=== PATIENT | female | born 1970 | race Caucasian/White ===

== ENCOUNTER 2017-10-19 21:05 | Inpatient (IN) | payer OTHER ==
[2017-10-19 21:26] VITALS: BMI 39.8
[2017-10-19] MEDS ORDERED: morphine CARPU-JECT 4 MG/1 ML DISP.SYRIN IVPUSH ONE (21:44)
[2017-10-19] MEDS ORDERED: SODIUM CHLORIDE 500 ML IV STA (21:44)
[2017-10-19] MEDS ORDERED: ONDANSETRON 4 MG/2 ML VIAL IVPUSH ONE (21:44)
[2017-10-19 22:14] LABS: URINE APPEARANCE CLOUDY; URINE BILIRUBIN NEGATIVE (NEGATIVE); URINE BLOOD 2+ (NEGATIVE); URINE COLOR AMBER; URINE GLUCOSE (UA) NEGATIVE (NEGATIVE); URINE KETONE NEGATIVE (NEGATIVE); URINE NITRITE NEGATIVE (NEGATIVE); URINE UROBILINOGEN 4.0 E.U/dl mg/dL (0.2-1.0)
[2017-10-19 22:15] LABS: URINE LEUK ESTERASE 3+ (NEGATIVE); URINE PROTEIN 2+ (NEGATIVE)
--- NOTE | 2017-10-19 22:15 | PDOC ---
History of Present Illness - General Chief Complaint: Pain Stated Complaint: FEVER, POST SURGERY Time Seen by Provider: 10/19/17 21:23 History Source: Patient, Family Exam Limitations: Language Barrier - History of Present Illness Travel History: No Initial Comments: 10/19/17 22:09 47yo Female patient w/ PmHx: Recurrent Renal Colic, NIDDM, HTN, HLD, presents to ED c/o urinary discomfort, fever, and back pain. Patient recently had Renal stent placed to left kidney on Oct 07 and Removed Oct 17. Patient was last seen at [facility] in [place] and diagnosed with "Urine infection." She was instructed to go to nearest ED if developed fever, vomiting with back pain. Patient is currently taking Keflex 500mg, Flomax 0.5mg, and Oxybutynin 5mg. She reports associated Dizziness, feeling of faint and dehydration, with n/v. She report BS not controlled since urine infection. She denies any other complaints at this time. Urologist- Dr. Lindsey ([place]). PCP- Dr. Méndez ([place]). Timing/Duration: reports: getting worse. denies: constant, changing over time, intermittent, resolved prior to arrival, gone now, other Quality: reports: moderate, cramping. denies: mild, severe, aching, burning, dullness, fullness, sharpness, stabbing, throbbing, other Abdominal Pain Onset Location: reports: flank (Left). denies: RUQ, LUQ, RLQ, LLQ, epigastric, periumbilical, suprapubic, generalized abdomen, unknown, other Pain Radiation: reports: no radiation. denies: RUQ, LUQ, RLQ, LLQ, epigastric, periumbilical, flank, groin, scapula, shoulder, chest, back, other Activities at Onset: reports: no specific activity. denies: none, exertion, emotional upset, rest, sleep, eating, working, sexual intercourse, other Treatment Prior to Arrive: improves with: other (Prescribed Medications). worse with: analgesics, antacids, cold pack, heat, laxative, enema Past History - Travel Traveled outside of the country in the last 30 days: No Close contact w/someone who was outside of country & ill: No - Past Medical History Allergies/Adverse Reactions: Allergies Allergy/AdvReac Type Severity Reaction Status Date / Time aspirin Allergy Severe Swelling Verified 10/19/17 21:17 Fruit Allergy Severe Swelling Uncoded 10/19/17 21:17 Home Medications: Ambulatory Orders Epinephrine (Epi-Pen 0.3MG) [Epipen 0.3MG -] 0.3 mg IM ASDIR PRN 10/19/17 Metformin HCl 500 mg PO BID 10/19/17 Montelukast Na [Singulair -] 10 mg PO DAILY 10/19/17 Nitrofurantoin Monohyd/M-Cryst [Macrobid -] 100 mg PO BID 10/19/17 Ondansetron HCl [Zofran] 4 mg PO Q8H 10/19/17 Simvastatin 80 mg PO HS 10/19/17 Tamsulosin HCl [Flomax] 0.4 mg PO DAILY 10/19/17 COPD: No Diabetes: Yes HTN: Yes Hypercholesterolemia: Yes Kidney Stones: Yes (w/ 2 surgeries) - Suicide/Smoking/Psychosocial Hx Smoking History: Former smoker Have you smoked in the past 12 months: No If you are a former smoker, when did you quit?: 25 yrs ago Information on smoking cessation initiated: No Hx Alcohol Use: No Drug/Substance Use Hx: No Substance Use Type: None Abd/GI Specific PMHX - Complaint Specific PMHX Colitis: No Diverticulitis: No Gall Bladder Disease: No GERD: No Hepatitis: No Irritable Bowel Synd (IBS): No Pancreatitis: No GI Ulcer Disease: No Review of Systems - Review of Systems Able to Perform ROS?: Yes Is the patient limited Telugu proficient: No Constitutional: Yes: Chills, Fever ABD/GI: Yes: Nausea, Poor Fluid Intake, Vomiting. No: Diarrhea, Poor Appetite : Yes: Dysuria, Flank Pain (Left) Musculoskeletal: Yes: Back Pain All Other Systems: Reviewed and Negative *Physical Exam - Vital Signs Last Vital Signs Temp Pulse Resp BP Pulse Ox 99.7 F H 108 H 20 99/52 99 10/19/17 21:17 10/19/17 21:17 10/19/17 21:17 10/19/17 21:17 10/19/17 21:17 - Physical Exam General Appearance: Yes: Nourished, Appropriately Dressed, Mild Distress. No: Apparent Distress, Moderate Distress, Severe Distress Respiratory/Chest: positive: Lungs Clear, Normal Breath Sounds. negative: Chest Tender, Respiratory Distress, Accessory Muscle Use, Labored Respiration, Rapid RR, Decreased Breath Sounds, Paradoxal Breathing, Rhonchi, Stridor, Wheezing Cardiovascular: positive: Tachycardia Gastrointestinal/Abdominal: positive: Normal Bowel Sounds, Soft. negative: Tender, Protuberent, Distended, Guarding, Rebound, Tenderness Musculoskeletal: positive: Normal Inspection, CVA Tenderness, CVA Tenderness (L) . negative: CVA Tenderness (R) Extremity: positive: Normal Capillary Refill, Normal Inspection, Normal Range of Motion. negative: Pedal Edema, Swelling, Calf Tenderness, Erythema, Inflammation Integumentary: positive: Normal Color, Dry, Warm Neurologic: positive: customer care manager II-XII NML intact, Fully Oriented, Alert, Normal Mood/ Affect, Normal Response, Motor Strength 03/07 ED Treatment Course - LABORATORY CBC & Chemistry Diagram: 10/19/17 22:13 10/19/17 22:13 *DC/Admit/Observation/Transfer Diagnosis at time of Disposition: Hyponatremia, Renal colic Hydronephrosis Qualifiers: Hydronephrosis type: with other ureteral stricture Qualified Code(s): N13.1 - Hydronephrosis with ureteral stricture, not elsewhere classified UTI (urinary tract infection) Qualifiers: Urinary tract infection type: site unspecified Hematuria presence: without hematuria Qualified Code(s): N39.0 - Urinary tract infection, site not specified - Discharge Dispostion Condition at time of disposition: Fair Admit: Yes - Referrals - Patient Instructions - Post Discharge Activity
[2017-10-19 22:17] LABS: URINE BACTERIA RARE /hpf (NONE SEEN); URINE HYALINE CAST 2 /lpf; URINE RBC 19 /hpf (0-3); URINE WBC 354 /hpf (3-5); YEAST RARE
[2017-10-19 22:20] LABS: BASO % 0.6 % (0-2.0); EOS % 0.5 % (0-4.5); MCH 25.9 pg (25.7-33.7); MCHC 32.6 g/dl (32.0-36.0); MEAN CELL VOLUME 79.5 fl (80-96); MEAN PLT VOLUME 7.8 fl (7.5-11.1); NEUT % 86.6 % (42.8-82.8); PLATELET COUNT 303 K/MM3 (134-434); RDW 14.7 % (11.6-15.6)
[2017-10-19] MEDS ORDERED: ACETAMINOPHEN 500 MG TABLET (FP) PO ONE (22:20)
[2017-10-19] MEDS ORDERED: ONDANSETRON 4 MG/2 ML VIAL ONE (22:20)
[2017-10-19] MEDS ORDERED: morphine SULFATE 4 MG/ML VIAL ONE (22:20)
[2017-10-19] MEDS ORDERED: ACETAMINOPHEN 325 MG TABLET (FP) ONE (22:41)
[2017-10-19 22:48] LABS: ALBUMIN 2.8 g/dl (3.4-5.0); ANION GAP 10 (8-16); BILIRUBIN,TOTAL 0.8 mg/dL (0.2-1.0); CALCIUM 8.3 mg/dL (8.5-10.1); CO2 24 mmol/L (21-32); CREATININE 1.9 mg/dL (0.55-1.02); GLUCOSE,RANDOM 174 mg/dL (74-106); SGOT/AST 42 U/L (15-37); SGPT/ALT 46 U/L (12-78); TOT PROT 7.6 g/dl (6.4-8.2)
[2017-10-19 22:49] LABS: ALK PHOS 184 U/L (45-117)
[2017-10-20] MEDS ORDERED: SODIUM CHLORIDE 1,000 ML IV STA (00:13)
[2017-10-20] MEDS ORDERED: cefTRIAXone 2 GM/100 ML BAG (PRE-DOCKED) IVPB ONE (02:03)
[2017-10-20] MEDS ORDERED: CEFTRIAXONE 2 GM/100 ML BAG IVPB ONE (02:13)
[2017-10-20] MEDS ORDERED: morphine SULFATE 4 MG/ML VIAL IVPUSH PRN ×2 (03:27→11:03)
[2017-10-20] MEDS ORDERED: ONDANSETRON 4 MG/2 ML VIAL IVPUSH PRN ×2 (03:27→11:03)
[2017-10-20] MEDS ORDERED: SODIUM CHLORIDE 1,000 ML IV SCH (03:45)
--- NOTE | 2017-10-20 04:36 | HP ---
<Skip Valladares - Last Filed: 10/20/17 04:40> CHIEF COMPLAINT: back pain PCP: n/a HISTORY OF PRESENT ILLNESS: Patient is a 47 yo F with a PMHx of recurrent nephrolithiasis (s/p left stent 10/07/17), HTN, diabetes, HLD, presented today because of 10/12 constant, nonradiating left back pain and subjective fever of 102 that has been going on for the past few days. She says she went to the ED 3 times since her stent removal with no relief of her kidney stones. She underwent Lithiotripsy in August and had the stent placed on 10/07 (removed ). She was discharged and is currently on Keflex 500mg, Flomax, and Oxybutinin. She states she has nausea and poor oral intake for the past week but denies nausea. She also complains of dysuria, burning while urinating and suprapubic pain. ER course was notable for: (1) 108 HR, 99/52, WBC 17 (2) CT abdomen: 2-3 mm stone distal left ureter mear UVJ causing moderate hydroureteronephrosis, 8mm stone left lower pole. 7 mm focus of left perihilar fat versus incidental angiomyolipoma mid left kidney. (3) Ceftriaxone 2gm Recent Travel: n/a PAST MEDICAL HISTORY: recurrent nephrolithiasis (s/p left stent 10/07/17), HTN, diabetes, HLD PAST SURGICAL HISTORY: stent placed on 10/07 (removed 10/17) Social History: Smoking: former smoker 25 years ago Alcohol: n/a Drugs: denies Family History: Allergies aspirin Allergy (Severe, Verified 10/19/17 21:17) Swelling Fruit Allergy (Severe, Uncoded 10/19/17 21:17) Swelling HOME MEDICATIONS: Home Medications Medication Instructions Recorded Epinephrine (Epi-Pen 0.3MG) 0.3 mg IM ASDIR PRN 10/19/17 [Epipen 0.3MG -] Metformin HCl 500 mg PO BID 10/19/17 Montelukast Na [Singulair -] 10 mg PO DAILY 10/19/17 Nitrofurantoin Monohyd/M-Cryst 100 mg PO BID 10/19/17 [Macrobid -] Ondansetron HCl [Zofran] 4 mg PO Q8H 10/19/17 Simvastatin 80 mg PO HS 10/19/17 Tamsulosin HCl [Flomax] 0.4 mg PO DAILY 10/19/17 REVIEW OF SYSTEMS CONSTITUTIONAL: Absent: fever, chills, diaphoresis, generalized weakness, malaise, loss of appetite, weight change HEENT: Absent: rhinorrhea, nasal congestion, throat pain, throat swelling, difficulty swallowing, mouth swelling, ear pain, eye pain, visual changes CARDIOVASCULAR: Absent: chest pain, syncope, palpitations, irregular heart rate, lightheadedness , peripheral edema RESPIRATORY: Absent: cough, shortness of breath, dyspnea with exertion, orthopnea, wheezing, stridor, hemoptysis GASTROINTESTINAL: Absent: abdominal pain, abdominal distension, nausea, vomiting, diarrhea, constipation, melena, hematochezia GENITOURINARY: Absent: dysuria, frequency, urgency, hesitancy, hematuria, flank pain, genital pain MUSCULOSKELETAL: Absent: myalgia, arthralgia, joint swelling, back pain, neck pain SKIN: Absent: rash, itching, pallor HEMATOLOGIC/IMMUNOLOGIC: Absent: easy bleeding, easy bruising, lymphadenopathy, frequent infections ENDOCRINE: Absent: unexplained weight gain, unexplained weight loss, heat intolerance, cold intolerance NEUROLOGIC: Absent: headache, focal weakness or paresthesias, dizziness, unsteady gait, seizure, mental status changes, bladder or bowel incontinence PSYCHIATRIC: Absent: anxiety, depression, suicidal or homicidal ideation, hallucinations. PHYSICAL EXAMINATION Vital Signs - 24 hr 10/19/17 21:17 Temperature 99.7 F H Pulse Rate 108 H Respiratory 20 Rate Blood Pressure 99/52 O2 Sat by Pulse 99 Oximetry (%) GENERAL: Awake, alert, and fully oriented, in no acute distress. HEAD: Normal with no signs of trauma. EYES: extraocular movements intact, sclera anicteric, conjunctiva clear. EARS, NOSE, THROAT: oropharynx clear without exudates. Moist mucous membranes. NECK: Normal range of motion, supple without lymphadenopathy, JVD, or masses. LUNGS: Breath sounds equal, clear to auscultation bilaterally. No wheezes, and no crackles. No accessory muscle use. HEART: tachy, rhythm, normal S1 and S2 without murmur, rub or gallop. ABDOMEN: L CVA tenderness, suprapubic tenderness. Soft, not distended, normoactive bowel sounds, no guarding, no rebound, no masses. MUSCULOSKELETAL: Normal range of motion at all joints. No bony deformities or tenderness. No CVA tenderness. UPPER EXTREMITIES: 2+ pulses, warm, well-perfused. No cyanosis. No clubbing. No peripheral edema. LOWER EXTREMITIES: 2+ pulses, warm, well-perfused. No calf tenderness. No peripheral edema. NEUROLOGICAL: Cranial nerves II-XII intact. Normal speech. Normal gait. PSYCHIATRIC: Cooperative. Good eye contact. Appropriate mood and affect. Laboratory Results - last 24 hr 10/19/17 10/19/17 10/19/17 22:05 22:13 22:13 WBC 17.0 H RBC 3.91 Hgb 10.1 L Hct 31.0 L MCV 79.5 L MCH 25.9 MCHC 32.6 RDW 14.7 Plt Count 303 MPV 7.8 Neutrophils % 86.6 H Lymphocytes % 5.9 L Monocytes % 6.4 Eosinophils % 0.5 Basophils % 0.6 Sodium 129 L Potassium 3.8 Chloride 95 L Carbon Dioxide 24 Anion Gap 10 BUN 17 Creatinine 1.9 H Creat Clearance w eGFR 28.10 Random Glucose 174 H Lactic Acid Calcium 8.3 L Total Bilirubin 0.8 AST 42 H ALT 46 Alkaline Phosphatase 184 H Total Protein 7.6 Albumin 2.8 L Urine Color Daisha Urine Appearance Cloudy Urine pH 5.0 Ur Specific [place] 1.015 Urine Protein 2+ H Urine Glucose (UA) Negative Urine Ketones Negative Urine Blood 2+ H Urine Nitrite Negative Urine Bilirubin Negative Urine Urobilinogen 4.0 e.u/dl H Urine WBC (Auto) 354 Urine RBC (Auto) 19 Ur Epithelial Cells Few Urine Bacteria Rare Hyaline Casts 2 Urine Yeast Rare 10/19/17 22:15 WBC RBC Hgb Hct MCV MCH MCHC RDW Plt Count MPV Neutrophils % Lymphocytes % Monocytes % Eosinophils % Basophils % Sodium Potassium Chloride Carbon Dioxide Anion Gap BUN Creatinine Creat Clearance w eGFR Random Glucose Lactic Acid 2.0 Calcium Total Bilirubin AST ALT Alkaline Phosphatase Total Protein Albumin Urine Color Urine Appearance Urine pH Ur Specific [place] Urine Protein Urine Glucose (UA) Urine Ketones Urine Blood Urine Nitrite Urine Bilirubin Urine Urobilinogen Urine WBC (Auto) Urine RBC (Auto) Ur Epithelial Cells Urine Bacteria Hyaline Casts Urine Yeast ASSESSMENT/PLAN: Patient is a 47 yo F with a PMHx of recurrent nephrolithiasis, HTN, diabetes, HLD, presented because of left back pain, fever, and suprapubic tenderness and was found to have urosepsis with obstructing nephrolithiasis. #Urosepsis 2/2 Obstructing Nephrolithiasis - CT abdomen: 2-3 mm stone distal left ureter mear UVJ causing moderate hydroureteronephrosis, 8mm stone left lower pole. 7 mm focus of left perihilar fat versus incidental angiomyolipoma mid left kidney. - Cont. IV Abx: Ceftriaxone 1gm -Ucx, Bcx pending -Urine strain -FU CBC, CMP, Mag, Phos -FU Urine Osm, Serum Osm, Urine lytes -Morphine 4mg Q6H PRN for pain control -Zofran 4mg Q6H for nausea -Flomax 0.4 mg Daily -Oxybutynin 5mg BID -IV fluids NS 125cc/hour -Urology consulted () -ID consulted (Dr. Trujillo) #Diabetes -BGM -ISS #Hyponatremia -FU Urine Osm, Serum Osm, Urine lytes -FU morning CMP #HTN/HLD -Hold home meds. currently hypotensive -confirm home meds #FEN -IV Fluids- NS 125cc/hour -Sodium 129 -NPO #PPX -Heparin SQ TID Dispo: Med-surge <Aurea Lafleur - Last Filed: 10/20/17 05:56> Patient is seen and examined Agree with residents plan above CHIEF COMPLAINT: Abdominal pain , flank pain HISTORY OF PRESENT ILLNESS: 47 year old female with history of recurrent nephrolithiasis that presents today c/o worsening left flank pain 8/10 in intensity , constant , associated with fever. She has had recent left ureteral stent removal and is treated with PO antibiotics with no improvement of her symptoms PAST MEDICAL HISTORY: Nephrolithiasis DM HTN PAST SURGICAL HISTORY: Cystoscopy Allergies aspirin Allergy (Severe, Verified 10/19/17 21:17) Swelling Fruit Allergy (Severe, Uncoded 10/19/17 21:17) Swelling HOME MEDICATIONS: Home Medications Medication Instructions Recorded Epinephrine (Epi-Pen 0.3MG) 0.3 mg IM ASDIR PRN 10/19/17 [Epipen 0.3MG -] Metformin HCl 500 mg PO BID 10/19/17 Montelukast Na [Singulair -] 10 mg PO DAILY 10/19/17 Nitrofurantoin Monohyd/M-Cryst 100 mg PO BID 10/19/17 [Macrobid -] Ondansetron HCl [Zofran] 4 mg PO Q8H 10/19/17 Simvastatin 80 mg PO HS 10/19/17 Tamsulosin HCl [Flomax] 0.4 mg PO DAILY 10/19/17 Vital Signs Temperature 99.7 F H 10/19/17 21:17 Pulse Rate 108 H 10/19/17 21:17 Respiratory Rate 20 10/19/17 21:17 Blood Pressure 99/52 10/19/17 21:17 O2 Sat by Pulse Oximetry (%) 99 10/19/17 21:17 LUNGS: Breath sounds equal, clear to auscultation bilaterally. No wheezes, and no crackles. No accessory muscle use. HEART: tachy, rhythm, normal S1 and S2 without murmur, rub or gallop. ABDOMEN: L CVA tenderness, suprapubic tenderness. CBC, BMP 10/19/17 22:13 10/19/17 22:13 Urine Test Results Urine Color Daisha 10/19/17 22:05 Urine Appearance Cloudy 10/19/17 22:05 Urine pH 5.0 (5.0-8.0) 10/19/17 22:05 Ur Specific [place] 1.015 (1.001-1.035) 10/19/17 22:05 Urine Protein 2+ (NEGATIVE) H 10/19/17 22:05 Urine Glucose (UA) Negative (NEGATIVE) 10/19/17 22:05 Urine Ketones Negative (NEGATIVE) 10/19/17 22:05 Urine Blood 2+ (NEGATIVE) H 10/19/17 22:05 Urine Nitrite Negative (NEGATIVE) 10/19/17 22:05 Urine Bilirubin Negative (NEGATIVE) 10/19/17 22:05 Ur Epithelial Cells Few /HPF (FEW) 10/19/17 22:05 Urine Bacteria Rare /hpf (NONE SEEN) 10/19/17 22:05 CT abdomen: 2-3 mm stone distal left ureter mear UVJ causing moderate hydroureteronephrosis, 8mm stone left lower pole. 7 mm focus of left perihilar fat versus incidental angiomyolipoma mid left kidney. 1. Acute Pyelonephritis secondary to UTI / obstructive nephropathy 2. Failure of treatment with outpatient antibiotics 3. Acute renal failure 4. Hyponatremia 5 DM Plan IVAB ID and Urology eval Pain control with IV morphine IVF Monitor CR UA cultures Obtain records Insulin SS Visit type - Emergency Visit Emergency Visit: Yes ED Registration Date: 10/20/17 Care time: The patient presented to the Emergency Department on the above date and was hospitalized for further evaluation of their emergent condition. - New Patient This patient is new to me today: Yes Date on this admission: 10/20/17 - Critical Care Critical Care patient: No
[2017-10-20] MEDS ORDERED: HEPARIN NA (PORCINE) 5,000 UNITS/ML 1ML VIAL SQ SCH (06:00)
[2017-10-20] MEDS ORDERED: HEPARIN NA (PORCINE) 5,000 UNITS/ML 1ML VIAL ONE (06:22)
[2017-10-20 06:25] LABS: BASO % 0.4 % (0-2.0); MCH 26.1 pg (25.7-33.7); MCHC 32.5 g/dl (32.0-36.0); MEAN CELL VOLUME 80.4 fl (80-96); NEUT % 81.1 % (42.8-82.8); PLATELET COUNT 283 K/MM3 (134-434); RDW 14.8 % (11.6-15.6); WHITE BLOOD COUNT 14.5 K/mm3 (4.0-10.0)
[2017-10-20 07:05] LABS: ALBUMIN 2.4 g/dl (3.4-5.0); ALK PHOS 150 U/L (45-117); ANION GAP 10 (8-16); BILIRUBIN,TOTAL 0.4 mg/dL (0.2-1.0); CALCIUM 8.4 mg/dL (8.5-10.1); CO2 25 mmol/L (21-32); CREATININE 1.6 mg/dL (0.55-1.02); GLUCOSE,RANDOM 146 mg/dL (74-106); MAGNESIUM 1.9 mg/dL (1.8-2.4); PHOSPHOROUS 2.7 mg/dL (2.5-4.9); SGOT/AST 34 U/L (15-37); SGPT/ALT 39 U/L (12-78); TOT PROT 6.7 g/dl (6.4-8.2)
[2017-10-20] MEDS: INSULIN SLIDING SCALE (NOVOLOG) 1 VIAL SQ SCH ×4 (08:23→21:18)
--- NOTE | 2017-10-20 08:24 | MSN ---
Progress Note (short form) - Note Progress Note: Subjective: William Dotson is a 47 year old Georgian-speaking female with past medical history of DM, HTN, HLD, recurrent kidney stones who presented to the ED with fever and left flank pain. Patient was admitted for sepsis secondary to UTI with nephrolithiasis. Patient states that she was originally diagnosed with left kidney stone in June 2017. In August she had a lithotripsy. On Oct 07 she had a stent placed in her left ureter, which was removed on Oct 17. Patient states that the severity of her left flank pain is 5/10. She also reports suprapubic pain with a severity of 7/10. Patient states that the suprapubic pain feels like a full bladder. She states she voided a lot of urine around 7am. She reports some dysuria. She states she had hematuria while at home but currently denies hematuria. Patient states that since the stent removal she has not had a bowel movement. Patient currently denies dizziness, urinary hesitancy, urinary incontinence, chest pain, SOB, palpitations. Objective: Last Vital Signs Temp Pulse Resp BP Pulse Ox 98.9 F 90 18 94/51 98 10/20/17 06:08 10/20/17 06:08 10/20/17 06:08 10/20/17 06:08 10/20/17 06:08 Physical Exam: General: well-appearing, calm Head: atraumatic, normocephalic Eyes: PERRLA, EMOI, no scleral icterus, no conjunctival injection Nose: no edema, no septal deviation, no erythema Throat: MM pale, no lesions or exudates in the oropharynx Heart: RRR without MRG Lungs: CTA biaterally without RRW Abdomen: Soft, non-distended, bowel sounds present and normoactive, tenderness to palpation in the suprapubic region, left CVA tenderness MSK: Extremities: no pitting edema in bilateral lower extremities, 5/5 strength in upper and lower extremities bilaterally, sensation intact in bilateral upper and lower extremities, pulses are palpable and 2+ bilaterally in upper and lower extremities Neuro: A&Ox3, CN II-XII grossly intact, speech normal Laboratory Results - last 24 hr 10/19/17 10/19/17 10/19/17 22:05 22:13 22:13 WBC 17.0 H RBC 3.91 Hgb 10.1 L Hct 31.0 L MCV 79.5 L MCH 25.9 MCHC 32.6 RDW 14.7 Plt Count 303 MPV 7.8 Neutrophils % 86.6 H Lymphocytes % 5.9 L Monocytes % 6.4 Eosinophils % 0.5 Basophils % 0.6 Sodium 129 L Potassium 3.8 Chloride 95 L Carbon Dioxide 24 Anion Gap 10 BUN 17 Creatinine 1.9 H Creat Clearance w eGFR 28.10 Random Glucose 174 H Lactic Acid Calcium 8.3 L Phosphorus Magnesium Total Bilirubin 0.8 AST 42 H ALT 46 Alkaline Phosphatase 184 H Total Protein 7.6 Albumin 2.8 L Urine Color Daisha Urine Appearance Cloudy Urine pH 5.0 Ur Specific [place] 1.015 Urine Protein 2+ H Urine Glucose (UA) Negative Urine Ketones Negative Urine Blood 2+ H Urine Nitrite Negative Urine Bilirubin Negative Urine Urobilinogen 4.0 e.u/dl H Urine WBC (Auto) 354 Urine RBC (Auto) 19 Ur Epithelial Cells Few Urine Bacteria Rare Hyaline Casts 2 Urine Yeast Rare 10/19/17 10/20/17 10/20/17 22:15 05:44 05:44 WBC 14.5 H RBC 3.50 L Hgb 9.2 L Hct 28.1 L MCV 80.4 MCH 26.1 MCHC 32.5 RDW 14.8 Plt Count 283 MPV 8.0 Neutrophils % 81.1 Lymphocytes % 8.5 D Monocytes % 8.0 Eosinophils % 2.0 D Basophils % 0.4 Sodium 136 Potassium 4.5 Chloride 101 Carbon Dioxide 25 Anion Gap 10 BUN 16 Creatinine 1.6 H Creat Clearance w eGFR 34.26 Random Glucose 146 H Lactic Acid 2.0 Calcium 8.4 L Phosphorus 2.7 Magnesium 1.9 Total Bilirubin 0.4 D AST 34 ALT 39 Alkaline Phosphatase 150 H Total Protein 6.7 Albumin 2.4 L Urine Color Urine Appearance Urine pH Ur Specific [place] Urine Protein Urine Glucose (UA) Urine Ketones Urine Blood Urine Nitrite Urine Bilirubin Urine Urobilinogen Urine WBC (Auto) Urine RBC (Auto) Ur Epithelial Cells Urine Bacteria Hyaline Casts Urine Yeast Current Medications Generic Name Dose Route Start Last Admin Trade Name Freq PRN Reason Stop Dose Admin Heparin Sodium (Porcine) 5,000 unit 10/20/17 06:00 10/20/17 06:13 Heparin - SQ 5,000 unit TID ADÁN Administration Sodium Chloride 1,000 mls @ 125 mls/hr 10/20/17 03:45 10/20/17 04:28 Normal Saline - IV 125 mls/hr ASDIR ADÁN Administration CEFTRIAXONE 1 G/50 ML PREMIX 50 mls @ 100 mls/hr 10/21/17 06:00 Ceftriaxone 1 Gm-D5w Bag IVPB DAILY [facility] Insulin Aspart 1 vial 10/20/17 07:00 10/20/17 08:23 Novolog Vial Sliding Scale - SQ Not Given ACHS [facility] Protocol Morphine Sulfate 4 mg 10/20/17 03:27 Morphine Sulfate IVPUSH Q6H PRN PAIN Ondansetron HCl 4 mg 10/20/17 03:27 Zofran Injection IVPUSH Q6H PRN NAUSEA Oxybutynin Chloride 5 mg 10/20/17 10:00 Ditropan - PO BID [facility] Tamsulosin HCl 0.4 mg 10/20/17 08:30 Flomax - PO DAILY@0830 [facility] Home Medications Medication Instructions Recorded Epinephrine (Epi-Pen 0.3MG) 0.3 mg IM ASDIR PRN 10/19/17 [Epipen 0.3MG -] Metformin HCl 500 mg PO BID 10/19/17 Montelukast Na [Singulair -] 10 mg PO DAILY 10/19/17 Nitrofurantoin Monohyd/M-Cryst 100 mg PO BID 10/19/17 [Macrobid -] Ondansetron HCl [Zofran] 4 mg PO Q8H 10/19/17 Simvastatin 80 mg PO HS 10/19/17 Tamsulosin HCl [Flomax] 0.4 mg PO DAILY 10/19/17 A/P: William Dotson is a 47 yo F with PMHx of DM, HTN, HLD, recurrent renal colic who presented to the ED with fever and left flank pain. She was admitted for sepsis secondary to possible pyelonephritis with obstructing nephrolithiasis. 1. Sepsis secondary to possible pyelonephritis with obstructive nephrolithiasis - CT scan showed 2-3mm stone in distal left ureter near UVJ, 8mm stone in left lower pole, 7mm focus of left perihilar fat vs. incidental angiomyolipoma in mid left kidney - Patient likely has pyelonephritis now- presented with fever, increased WBC, left CVA tenderness. - Currently afebrile - WBC count trending down, initially 17, now 14.5 - Ceftriaxone 1gm IVPB with D5W daily- day 1 - Zofran 4mg Q6H PRN for nausea - Flomax 0.4 mg PO daily - Oxybutinin 5mg PO BID - Pain control with Morphine 4mg IVPUSH Q6H PRN - NPO - Fluids- 1 L IVNS - As per Dr. Fox, patient will have stent placed in left ureter, will go for procedure today - Urology on board- Dr. Yang - ID on board- Dr. Trujillo 2. Hyponatremia - Likely secondary to poor oral intake - Initially sodium was 129, now 136 - Now resolved 3. Constipation s/p stent removal - Patient hasn't had a bowel movement for 5 days after the left ureter stent was removed - Will start Miralax 4. Anemia - Hb initially 10.1, hematocrit initially 31; today H&H 9.2 and 28.1 - Anemia likely dilutional - Will continue to monitor H&H 5. DM - Hold metformin - BGM - ISS on board- Novolog 6. HTN - Hold HTN meds because of hypotension - Monitor BP 7. HLD - Simvastatin 80 mg PO HS 8. DVT Proph - Heparin 5000U SQ TID Dispo: Admit to Med-Surg.
[2017-10-20] MEDS ORDERED: TAMSULOSIN HCL 0.4 MG CAP.ER.24H (FP) PO SCH (08:30)
--- NOTE | 2017-10-20 09:33 | CON.GU ---
Consult Consult Specialty:: Referred by:: ED Reason for Consultation:: ureteral stone with hydronephrosis and sepsis - History of Present Illness Chief Complaint: left renal colic and fever History of Present Illness: ureteral stone with hydronephrosis and sepsis. She has been having pain for the last three days in the left flank which has been unrelenting. She reports that over that last three months she has undergone two operations for a left renal caclucus and most recently had removal of her ureteral stent on 10/17/17. She had a fever of 102F at home. Here she is tachycardic with fever and leukocytosis. CT scan reveals a 3mm left UVJ stone with severe hydronephrosis and a large stone in the lower pole - History Source History Provided By: Patient, Medical Record Limitations to Obtaining History: No Limitations - Past Medical History Renal/: Yes: Renal Calculi, UTI - Alcohol/Substance Use Hx Alcohol Use: No - Smoking History Smoking history: Former smoker Have you smoked in the past 12 months: No If you are a former smoker, when did you quit?: 25 yrs ago Home Medications - Allergies Allergies/Adverse Reactions: Allergies Allergy/AdvReac Type Severity Reaction Status Date / Time aspirin Allergy Severe Swelling Verified 10/19/17 21:17 Fruit Allergy Severe Swelling Uncoded 10/19/17 21:17 - Home Medications Home Medications: Ambulatory Orders Epinephrine (Epi-Pen 0.3MG) [Epipen 0.3MG -] 0.3 mg IM ASDIR PRN 10/19/17 Metformin HCl 500 mg PO BID 10/19/17 Montelukast Na [Singulair -] 10 mg PO DAILY 10/19/17 Nitrofurantoin Monohyd/M-Cryst [Macrobid -] 100 mg PO BID 10/19/17 Ondansetron HCl [Zofran] 4 mg PO Q8H 10/19/17 Simvastatin 80 mg PO HS 10/19/17 Tamsulosin HCl [Flomax] 0.4 mg PO DAILY 10/19/17 Review of Systems - Review of Systems Constitutional: reports: Chills, Fever, Loss of Appetite Genitourinary: reports: Dysuria, Flank Pain, Frequency. denies: Hematuria Physical Exam- Vital Signs: Vital Signs Temperature 98.9 F 10/20/17 06:08 Pulse Rate 90 10/20/17 06:08 Respiratory Rate 18 10/20/17 06:08 Blood Pressure 94/51 10/20/17 06:08 O2 Sat by Pulse Oximetry (%) 98 10/20/17 06:08 Constitutional: Yes: Well Nourished, No Distress, Calm Renal/: Yes: CVA Tenderness - Left. No: Bladder Distention, CVA Tenderness - Right, Padgett Present, Hematuria Labs: CBC, BMP 10/20/17 05:44 10/20/17 05:44 Imaging - Results Cat Scan: Image Reviewed Problem List - Problems (1) Calculus of ureter Assessment/Plan: appears to have obstructing stone with infection and signs of sepsis. immediate stent placement recommended. I spoke with the paitent and her and her son on the phone who the mother says is a physician. Original treating urologist was called but no answer and no answering service Code(s): N20.1 - CALCULUS OF URETER (2) Hydronephrosis Code(s): N13.30 - UNSPECIFIED HYDRONEPHROSIS
[2017-10-20] MEDS ORDERED: PROPOFOL 20 ML ONE ×2 (09:39→09:58)
[2017-10-20] MEDS ORDERED: ALBUTEROL SO4 18 GM HFA INHALER IH ONE (09:39)
[2017-10-20] MEDS ORDERED: MIDAZOLAM HCL 2 MG/2 ML SINGLE DOSE VIAL ONE (09:40)
[2017-10-20] MEDS ORDERED: OXYBUTYNIN CHLORIDE 5 MG TABLET PO SCH (10:00)
[2017-10-20] MEDS ORDERED: ACETAMINOPHEN 1000 MG/100 ML VIAL (NON FORMULARY) IVPB PRN (10:00)
[2017-10-20] MEDS ORDERED: DEXAMETHASONE SOD PHOSPHATE 4 MG/1 ML VIAL ONE (10:04)
[2017-10-20] MEDS: SODIUM CHLORIDE 1,000 ML IV SCH (11:53)
[2017-10-20] MEDS ORDERED: CEFTRIAXONE 1 GM in DEXTROSE 5%-WATER - 100 ML IVPB SCH (12:00)
[2017-10-20] MEDS: POLYETHYLENE GLYCOL 3350 119 GM BTL PO SCH (12:58)
--- NOTE | 2017-10-20 14:26 | PN ---
Progress Note, Physician Chief Complaint: ID Full note dictated - Current Medication List Current Medications: Active Medications Fentanyl (Sublimaze Injection -) 50 mcg IVPUSH [id number] PRN PRN Reason: PAIN Heparin Sodium (Porcine) (Heparin -) 5,000 unit SQ TID [facility] CEFTRIAXONE 1 G/50 ML PREMIX (Ceftriaxone 1 Gm-D5w Bag) 50 mls @ 100 mls/hr IVPB DAILY@0600 [facility] Sodium Chloride (Normal Saline -) 1,000 mls @ 125 mls/hr IV ASDIR [facility] Last Admin: 10/20/17 11:53 Dose: Not Given Insulin Aspart (Novolog Vial Sliding Scale -) 1 vial SQ ACHS [facility] PRN Reason: Protocol Morphine Sulfate (Morphine Sulfate) 4 mg IVPUSH Q6H PRN PRN Reason: PAIN Ondansetron HCl (Zofran Injection) 4 mg IVPUSH Q6H PRN PRN Reason: NAUSEA Oxybutynin Chloride (Ditropan -) 5 mg PO BID [facility] Polyethylene Glycol (Miralax (For Daily Use) -) 17 gm PO DAILY [facility] Last Admin: 10/20/17 12:58 Dose: 17 gm Tamsulosin HCl (Flomax -) 0.4 mg PO DAILY@0830 [facility] - Objective Vital Signs: Vital Signs Temperature 98.0 F 10/20/17 13:49 Pulse Rate 96 H 10/20/17 13:49 Respiratory Rate 16 10/20/17 13:49 Blood Pressure 111/66 10/20/17 13:49 O2 Sat by Pulse Oximetry (%) 98 10/20/17 11:15 Labs: CBC, BMP 10/20/17 05:44 10/20/17 05:44 Problem List - Problems (1) UTI (urinary tract infection) Code(s): N39.0 - URINARY TRACT INFECTION, SITE NOT SPECIFIED Qualifiers: Urinary tract infection type: site unspecified Hematuria presence: without hematuria Qualified Code(s): N39.0 - Urinary tract infection, site not specified Assessment/Plan Microbiology Laboratory Tests 10/19/17 10/19/17 22:05 22:13 WBC 17.0 H RBC 3.91 Plt Count 303 Urine WBC (Auto) 354 Urine RBC (Auto) 19 Assessment UTI with stone and S/P stent today ( recently removed) Plan Pending cultures Ceftriaxone 1 gram daily Ivon YAN
[2017-10-20] MEDS: HEPARIN NA (PORCINE) 5,000 UNITS/ML 1ML VIAL SQ SCH ×2 (14:59→21:13)
--- NOTE | 2017-10-20 16:44 | PN ---
Physical Exam: SUBJECTIVE: Patient seen and examined at bedside. Improved s/p stent placement. no new complaints OBJECTIVE: Vital Signs Period Temp Pulse Resp BP Sys/Hayes Pulse Ox Last 24 Hr 98.0 F-99.7 F 90-108 16-27 94-112/48-66 96-100 GENERAL: The patient is awake, alert, and fully oriented, in no acute distress. LUNGS: Breath sounds equal, clear to auscultation bilaterally, no wheezes, no crackles, no accessory muscle use. HEART: Regular rate and rhythm, S1, S2 without murmur, rub or gallop. ABDOMEN: Soft, nontender, nondistended, normoactive bowel sounds, no guarding, no rebound. Tenderness to palpation in suprapubic region Laboratory Results - last 24 hr 10/19/17 10/19/17 10/19/17 22:05 22:13 22:13 WBC 17.0 H RBC 3.91 Hgb 10.1 L Hct 31.0 L MCV 79.5 L MCH 25.9 MCHC 32.6 RDW 14.7 Plt Count 303 MPV 7.8 Neutrophils % 86.6 H Lymphocytes % 5.9 L Monocytes % 6.4 Eosinophils % 0.5 Basophils % 0.6 Sodium 129 L Potassium 3.8 Chloride 95 L Carbon Dioxide 24 Anion Gap 10 BUN 17 Creatinine 1.9 H Creat Clearance w eGFR 28.10 POC Glucometer Random Glucose 174 H Lactic Acid Calcium 8.3 L Phosphorus Magnesium Total Bilirubin 0.8 AST 42 H ALT 46 Alkaline Phosphatase 184 H Total Protein 7.6 Albumin 2.8 L Urine Color Daisha Urine Appearance Cloudy Urine pH 5.0 Ur Specific [place] 1.015 Urine Protein 2+ H Urine Glucose (UA) Negative Urine Ketones Negative Urine Blood 2+ H Urine Nitrite Negative Urine Bilirubin Negative Urine Urobilinogen 4.0 e.u/dl H Urine WBC (Auto) 354 Urine RBC (Auto) 19 Ur Epithelial Cells Few Urine Bacteria Rare Hyaline Casts 2 Urine Yeast Rare 10/19/17 10/20/17 10/20/17 22:15 05:44 05:44 WBC 14.5 H RBC 3.50 L Hgb 9.2 L Hct 28.1 L MCV 80.4 MCH 26.1 MCHC 32.5 RDW 14.8 Plt Count 283 MPV 8.0 Neutrophils % 81.1 Lymphocytes % 8.5 D Monocytes % 8.0 Eosinophils % 2.0 D Basophils % 0.4 Sodium 136 Potassium 4.5 Chloride 101 Carbon Dioxide 25 Anion Gap 10 BUN 16 Creatinine 1.6 H Creat Clearance w eGFR 34.26 POC Glucometer Random Glucose 146 H Lactic Acid 2.0 Calcium 8.4 L Phosphorus 2.7 Magnesium 1.9 Total Bilirubin 0.4 D AST 34 ALT 39 Alkaline Phosphatase 150 H Total Protein 6.7 Albumin 2.4 L Urine Color Urine Appearance Urine pH Ur Specific [place] Urine Protein Urine Glucose (UA) Urine Ketones Urine Blood Urine Nitrite Urine Bilirubin Urine Urobilinogen Urine WBC (Auto) Urine RBC (Auto) Ur Epithelial Cells Urine Bacteria Hyaline Casts Urine Yeast 10/20/17 10/20/17 08:21 11:28 WBC RBC Hgb Hct MCV MCH MCHC RDW Plt Count MPV Neutrophils % Lymphocytes % Monocytes % Eosinophils % Basophils % Sodium Potassium Chloride Carbon Dioxide Anion Gap BUN Creatinine Creat Clearance w eGFR POC Glucometer [phone] Random Glucose Lactic Acid Calcium Phosphorus Magnesium Total Bilirubin AST ALT Alkaline Phosphatase Total Protein Albumin Urine Color Urine Appearance Urine pH Ur Specific [place] Urine Protein Urine Glucose (UA) Urine Ketones Urine Blood Urine Nitrite Urine Bilirubin Urine Urobilinogen Urine WBC (Auto) Urine RBC (Auto) Ur Epithelial Cells Urine Bacteria Hyaline Casts Urine Yeast Active Medications Generic Name Dose Route Start Last Admin Trade Name Freq PRN Reason Stop Dose Admin Fentanyl 50 mcg 10/20/17 12:09 Sublimaze Injection - IVPUSH [id number] PRN PAIN Heparin Sodium (Porcine) 5,000 unit 10/20/17 14:00 10/20/17 14:59 Heparin - SQ 5,000 unit TID [facility] Administration CEFTRIAXONE 1 G/50 ML PREMIX 50 mls @ 100 mls/hr 10/21/17 06:00 Ceftriaxone 1 Gm-D5w Bag IVPB DAILY@0600 [facility] Sodium Chloride 1,000 mls @ 125 mls/hr 10/20/17 11:03 10/20/17 11:53 Normal Saline - IV Not Given ASDIR [facility] Insulin Aspart 1 vial 10/20/17 16:30 Novolog Vial Sliding Scale - SQ ACHS [facility] Protocol Morphine Sulfate 4 mg 10/20/17 11:03 Morphine Sulfate IVPUSH Q6H PRN PAIN Ondansetron HCl 4 mg 10/20/17 11:03 Zofran Injection IVPUSH Q6H PRN NAUSEA Oxybutynin Chloride 5 mg 10/20/17 22:00 Ditropan - PO BID ADÁN Polyethylene Glycol 17 gm 10/20/17 11:45 10/20/17 12:58 Miralax (For Daily Use) - PO 17 gm DAILY ADÁN Administration Tamsulosin HCl 0.4 mg 10/21/17 08:30 Flomax - PO DAILY@0830 [facility] ASSESSMENT/PLAN: The patient is a 47 yo F w/PMHx of recurrent nephrolithiasis, HTN, diabetes, HLD admitted for sepsis 2/2 pyelonephritis with obstructing nephrolithiasis. #sepsis 2/2 Pyelonephritis 2/2 Obstructing Nephrolithiasis -CT abdomen shows stone at UVJ with hydronephrosis and hydroureter -IV Ceftriaxone 1gm daily -Ucx, Bcx pending -Urine strain -Morphine 4mg Q6H PRN for pain control -Zofran 4mg Q6H for nausea -Flomax 0.4 mg Daily -Oxybutynin 5mg BID -ID consulted: c/w current ABX and await final c&s -s/p stent placement today w/ Dr. Cruz -f/u urology reccs #Diabetes -BGM -ISS #Hyponatremia -improved this AM, will continue to monitor #HTN/HLD -Hold home meds. currently hypotensive #FEN -IV Fluids- NS 125cc/hour -Sodium WNL -regular diet #PPX -Heparin SQ TID Dispo: -admitted to Med-surg Visit type - Emergency Visit Emergency Visit: Yes ED Registration Date: 10/20/17 Care time: The patient presented to the Emergency Department on the above date and was hospitalized for further evaluation of their emergent condition. - New Patient This patient is new to me today: Yes Date on this admission: 10/20/17 - Critical Care Critical Care patient: No
[2017-10-20 17:17] LABS: URINE LEUK ESTERASE 2+ (NEGATIVE)
--- NOTE | 2017-10-20 17:22 | PN ---
Teaching Attending Note Name of Resident: Diego Taylor ATTENDING PHYSICIAN STATEMENT I saw and evaluated the patient. I reviewed the resident's note and discussed the case with the resident. I agree with the resident's findings and plan as documented. SUBJECTIVE:pain improved. some residual L flank pain. +hematuria denies CP< SOB , fever, chills, N/V/C/D OBJECTIVE: Last Vital Signs Temp Pulse Resp BP Pulse Ox 98.0 F 96 H 16 111/66 98 10/20/17 13:49 10/20/17 13:49 10/20/17 13:49 10/20/17 13:49 10/20/17 11:15 General NAD CV S1 S2 + Lungs CTA B/L no wheezing/rales/rhonchi Abdomen soft +L flank tendernss +L CVA tenderness obese ASSESSMENT AND PLAN: 47yo F with PMH HTN, DM, dyslipidemia and recurrent stones wiht recent stent removal on 10/17 and completion of keflex presented tot he ER with L flank pain and fever and found to have pyelo with multiple stones 1. Sepsis due to Acute Pyeloneprhitis with obstructive uropathy- s/p L stent placement 10/20. with improvement in symptoms. started on Ceftriaxone today. strain urine, cont IVF, flomax and pain control. ID and urology on board. F/u Cx 2. Acute anemia- likely dilutional component. +hematuria after procedure. will monitor. no indication for transfusion 3. KEVIN- due to obstructive uropathy. improved. cont IVF. renal dose medications. hold acei/diuretic 4. Hyponatremia- dehydration. resolved 5. DM- controlled. diabetic diet. iss. hold oral medicaitions 6. HTN- currently normotesnive. hold oral agents, re-start as needed 7. DVT ppx- hep sq
--- NOTE | 2017-10-20 19:37 | CONS ---
INFECTIOUS DISEASE CONSULTATION DATE OF CONSULTATION: 10/20/2017 HISTORY OF PRESENT ILLNESS: This is a 47-year-old [place] female, Maori speaking, who I am asked to see for evaluation of urinary tract infection. I spoke to the patient in Maori and reviewed her consultations including that from Dr. Machado, her urologist. She is admitted for management of fever with a ureteral stone and hydronephrosis. She has apparently been having pain over the last 3 days in the left flank area, which has been severe and unrelenting. Over the last 3 months, she had undergone 2 urological procedures for a left renal calculus, most recently having had a ureteral stent removed on October 17. According to the patient, she was taking some oral antibiotics, though did not know the name. She noted fever to 102 at home, and when she came here, was found to be tachycardic with an elevated white count of 17,000 to 18,000. A CAT scan revealed a 3-mm left UVJ stone with severe hydronephrosis and a large stone in the lower pole of the kidney. Earlier today, she was taken to the operating room for placement of a new left ureteral stent. Currently, she notes feeling better and is getting ceftriaxone. Blood and urine cultures are pending. PAST MEDICAL HISTORY: Includes nephrolithiasis with stent, [id number], hypertension, hyperlipidemia. MEDICATIONS: Metformin, Singulair, nitrofurantoin, simvastatin, tamsulosin. ALLERGIES: ASPIRIN. SOCIAL HISTORY: Living in the [place]. Former smoker, but gave this up many years ago. No history of alcohol use. FAMILY HISTORY: Reviewed and noncontributory. REVIEW OF SYSTEMS: Respiratory: No cough or shortness of breath. Cardiac: No chest pain, palpitations; history of murmur. Gastrointestinal: Currently, no abdominal pain, nausea, vomiting, diarrhea. Genitourinary: No dysuria, hematuria, or urinary frequency. PHYSICAL EXAMINATION: General: She was an alert female in no acute distress. Vital Signs: The temperature was 98 degrees with a pulse of 96, blood pressure 111/66, respirations 16. Neck: Supple. Lungs: Clear to percussion and auscultation. Heart: S1, S2. Regular rhythm with no audible murmur or gallop. Abdomen: Soft, nontender, without hepatosplenomegaly. Extremities: Without clubbing, cyanosis, or edema. Genitourinary: Revealed mild left costovertebral angle tenderness. DIAGNOSTIC DATA: The white count on admission 17,000, now 14.5; hemoglobin 9.2; platelets 283. BUN 16, creatinine 1.6. Liver enzymes within normal limit. Alkaline phosphatase 150. Urinalysis with 350 WBCs, 19 RBCs. ASSESSMENT: A 47-year-old female with a history of left nephrolithiasis status post recent stent removal and taken to the operating room today after presenting with fever and tachycardia and urinary tract infection. A left ureteral stent was reinserted today, and currently, the patient symptomatically feels much better. Blood and urine cultures are pending. She has been receiving ceftriaxone, and I would continue this for the current time pending culture results. Hopefully, she can be switched to an oral antibiotic in the next day or two, assuming, of course, her blood cultures remain no growth. CYNTHIA PAZ M.D. [id number]
--- NOTE | 2017-10-20 20:34 | OP ---
DATE OF OPERATION: 10/20/2017 PREOPERATIVE DIAGNOSES: Left hydronephrosis, left ureteral calculus, sepsis. POSTOPERATIVE DIAGNOSES: Left hydronephrosis, left ureteral calculus, sepsis. PROCEDURE: Cystoscopy, retrograde pyelogram, left ureteral stent placement. SURGEON: Will Machado MD ANESTHESIA: Aylin Salgado MD; general anesthesia. FINDINGS: Pyonephrosis and hydronephrosis. STENTS: 24 x 6 double-J ureteral stent. ESTIMATED BLOOD LOSS: Minimal. SPECIMEN: None. PREOPERATIVE INDICATIONS: The patient is a 47-year-old female who comes in with elevated white count, fever, tachycardia, obstructed left kidney from a 3-mm stone in distal ureter. She comes to the OR urgently for stent placement. DESCRIPTION OF OPERATION: The patient was brought to the OR, placed on the table in the supine position, given general anesthesia. Patient received IV antibiotics on the floor. The groin was prepped and draped sterilely. Timeout was performed. Cystoscopy was performed. The bladder appeared to be grossly unremarkable except around the left ureteral orifice where there was edema. She, as recently as 3 days ago, had a ureteral stent in place, that was removed. This is likely the cause of the edema. A wire was passed up into the left kidney under fluoroscopic guidance. Retrograde pyelogram was then performed, which confirmed hydronephrosis. A 6 x 24 double-J ureteral stent was placed, 1 loop in the upper pole of the kidney and 1 loop in the bladder. The bladder was emptied. Pus was seen emerging from the left ureteral stent. Patient was woken up. Jorge [id number]
[2017-10-20] MEDS: OXYBUTYNIN CHLORIDE 5 MG TABLET PO SCH (21:13)
[2017-10-20] MEDS ORDERED: PATIENT'S OWN MEDICATION (NON-FORMULARY) (Simvastatin [Simvastatin] 80 MG) PO SCH (22:00)
--- NOTE | 2017-10-21 01:29 | EKG ---
Test Reason : Blood Pressure : / mmHG Vent. Rate : 089 BPM Atrial Rate : 089 BPM P-R Int : 164 ms QRS Dur : 084 ms QT Int : 358 ms P-R-T Axes : 043 038 025 degrees QTc Int : 435 ms NORMAL SINUS RHYTHM NORMAL ECG NO PREVIOUS ECGS AVAILABLE Confirmed by LATESHA CASTANEDA MD ([id number]) on 10/21/2017 1:29:06 AM Referred By: Confirmed By:LATESHA CASTANEDA MD
[2017-10-21] MEDS: CEFTRIAXONE 1 G/50 ML PREMIX 50 ML IVPB SCH (05:25)
[2017-10-21] MEDS: HEPARIN NA (PORCINE) 5,000 UNITS/ML 1ML VIAL SQ SCH ×3 (05:55→21:42)
[2017-10-21] MEDS ORDERED: CEFTRIAXONE 1 G/50 ML PREMIX 50 ML IVPB SCH (06:00)
[2017-10-21] MEDS: INSULIN SLIDING SCALE (NOVOLOG) 1 VIAL SQ SCH ×4 (06:02→21:52)
--- NOTE | 2017-10-21 06:48 | PN ---
Physical Exam: SUBJECTIVE: No acute events overnight. Pt continues to void without problems and has noticed her red/dark urine has diminished with minor presence. Pt is tolerating food appropriately and has improved pain. Denies fever/chills, dysuria, polyuria. OBJECTIVE: Vital Signs Period Temp Pulse Resp BP Sys/Hayes Pulse Ox Last 24 Hr 97.8 F-98.7 F 65-101 16-27 100-123/48-78 96-100 GENERAL: NAD, awake, alert, and fully oriented HEENT: NC/AT, No JVD, normal structures of mouth with moist mucosa LUNGS: CTA bilaterally, no wheezes, rhonchi, rales. no accessory muscle use. HEART: RRR, S1, S2 without murmur ABDOMEN: Soft, mild suprapubic tenderness (improved), nondistended, normoactive bowel sounds, no guarding, no rebound, no hepatosplenomegaly MSK: Mild L CVA tenderness appreciated EXTREMITIES: 2+ DP pulses, warm, well-perfused, no edema. NEUROLOGICAL: Nonfocal exam. Normal speech, gait not observed. PSYCH: Normal mood, normal affect. SKIN: Warm, dry, no rashes or lesions noted Laboratory Results - last 24 hr 10/19/17 10/20/17 10/20/17 22:05 05:44 08:21 Sodium 136 Potassium 4.5 Chloride 101 Carbon Dioxide 25 Anion Gap 10 BUN 16 Creatinine 1.6 H Creat Clearance w eGFR 34.26 POC Glucometer [phone] Random Glucose 146 H Calcium 8.4 L Phosphorus 2.7 Magnesium 1.9 Total Bilirubin 0.4 D AST 34 ALT 39 Alkaline Phosphatase 150 H Total Protein 6.7 Albumin 2.4 L Ur Leukocyte Esterase 2+ H 10/20/17 10/20/17 10/20/17 11:28 17:52 21:16 Sodium Potassium Chloride Carbon Dioxide Anion Gap BUN Creatinine Creat Clearance w eGFR POC Glucometer 157 193 177 Random Glucose Calcium Phosphorus Magnesium Total Bilirubin AST ALT Alkaline Phosphatase Total Protein Albumin Ur Leukocyte Esterase 10/21/17 06:00 Sodium Potassium Chloride Carbon Dioxide Anion Gap BUN Creatinine Creat Clearance w eGFR POC Glucometer 153 Random Glucose Calcium Phosphorus Magnesium Total Bilirubin AST ALT Alkaline Phosphatase Total Protein Albumin Ur Leukocyte Esterase Active Medications Generic Name Dose Route Start Last Admin Trade Name Freq PRN Reason Stop Dose Admin Fentanyl 50 mcg 10/20/17 12:09 Sublimaze Injection - IVPUSH [id number] PRN PAIN Heparin Sodium (Porcine) 5,000 unit 10/20/17 14:00 10/21/17 05:55 Heparin - SQ 5,000 unit TID ADÁN Administration CEFTRIAXONE 1 G/50 ML PREMIX 50 mls @ 100 mls/hr 10/21/17 06:00 10/21/17 05: 25 Ceftriaxone 1 Gm-D5w Bag IVPB 100 mls/hr DAILY@0600 AD[facility]N Administration Sodium Chloride 1,000 mls @ 125 mls/hr 10/20/17 11:03 10/20/17 11:53 Normal Saline - IV Not Given ASDIR [facility] Insulin Aspart 1 vial 10/20/17 16:30 10/21/17 06:02 Novolog Vial Sliding Scale - SQ Not Given ACHS [facility] Protocol Morphine Sulfate 4 mg 10/20/17 11:03 Morphine Sulfate IVPUSH Q6H PRN PAIN Ondansetron HCl 4 mg 10/20/17 11:03 Zofran Injection IVPUSH Q6H PRN NAUSEA Oxybutynin Chloride 5 mg 10/20/17 22:00 10/20/17 21:13 Ditropan - PO 5 mg BID AD[facility] Administration Polyethylene Glycol 17 gm 10/20/17 11:45 10/20/17 12:58 Miralax (For Daily Use) - PO 17 gm DAILY AD[facility] Administration Tamsulosin HCl 0.4 mg 10/21/17 08:30 Flomax - PO DAILY@0830 [facility] ASSESSMENT/PLAN: 47yo F h/o HTN, DM, dyslipidemia and recurrent nephrolithiasis with stent removal (10/17) and completion of keflex presented to ER with L flank pain and fever found to have pyelonephritis with obstructing multiple stones 1) Sepsis 2/2 to acute pyelonephritis with obstructive uropathy --Pt currently ceftriaxone day 3 --Urine cultures reviewed --Repeat sent --Continue to strain urine --Stent placement this admission via urology --Post-void bladder scan showing complete voiding without any residual retention 2) KEVIN --2/2 to post-obstructive causes and possibly some prerenal azotemia --Improved 3) Hematuria --2/2 to stent placement and stones --Resolving --H/H remains stable 4) DM --ISS --BGM --Will resume metformin upon D/c FEN: Fluids: Electrolyte Abnormalities: None currently Diet: Diabetic diet PPX -- Dispo: D/C in 24 hrs with switch to oral antibiotics per ID Case discussed with Dr. Beatriz Garay, DO - Internal Medicine PGY-1 Visit type - Emergency Visit Emergency Visit: No - New Patient This patient is new to me today: No - Critical Care Critical Care patient: No
[2017-10-21 08:21] LABS: BASO % 0.3 % (0-2.0); EOS % 0.2 % (0-4.5); MCH 25.4 pg (25.7-33.7); MCHC 31.7 g/dl (32.0-36.0); MEAN CELL VOLUME 80.4 fl (80-96); MEAN PLT VOLUME 8.1 fl (7.5-11.1); PLATELET COUNT 329 K/MM3 (134-434); RDW 15.3 % (11.6-15.6)
[2017-10-21 08:40] LABS: ALBUMIN 2.4 g/dl (3.4-5.0); ANION GAP 9 (8-16); CALCIUM 8.5 mg/dL (8.5-10.1); CO2 23 mmol/L (21-32); CREATININE 0.9 mg/dL (0.55-1.02); GLUCOSE,RANDOM 137 mg/dL (74-106); SGOT/AST 54 U/L (15-37); SGPT/ALT 56 U/L (12-78)
[2017-10-21 08:42] LABS: ALK PHOS 189 U/L (45-117); BILIRUBIN,TOTAL 0.4 mg/dL (0.2-1.0); TOT PROT 6.8 g/dl (6.4-8.2)
--- NOTE | 2017-10-21 09:28 | MSN ---
Progress Note (short form) - Note Progress Note: Subjective: Patient seen and examined. Today patient states she is feeling better s/p stent placement in left ureter yesterday. Patient states she is able to void without any discomfort. She states she was still noticing a little blood in her urine but it's getting better. This morning she did not experience hematuria when voiding. She also reports mild suprapubic pain but states it has improved from before. Patient states she is tolerating her diabetic diet well. She states she had a normal bowel movement last night and one this morning. Patient currently denies nausea , dizziness, flank pain, dysuria, hesitancy, urinary incontinence, chest pain, SOB, palpitations. Objective: Last Vital Signs Temp Pulse Resp BP Pulse Ox 97.8 F 90 18 123/78 100 10/21/17 06:13 10/21/17 06:13 10/21/17 06:13 10/21/17 06:13 10/20/17 12:20 Physical Exam: General: well-appearing, calm Heart: RRR without MRG Lungs: CTA biaterally without RRW Abdomen: Soft, non-distended, bowel sounds present and normoactive, mild tenderness to palpation in the suprapubic region, no CVA tenderness MSK: Extremities: no pitting edema in bilateral lower extremities, 5/5 strength in upper and lower extremities bilaterally, sensation intact in bilateral upper and lower extremities, pulses are palpable and 2+ bilaterally in upper and lower extremities Laboratory Results - last 24 hr 10/19/17 10/20/17 10/20/17 22:05 08:21 11:28 WBC RBC Hgb Hct MCV MCH MCHC RDW Plt Count MPV Neutrophils % Lymphocytes % Monocytes % Eosinophils % Basophils % Sodium Potassium Chloride Carbon Dioxide Anion Gap BUN Creatinine Creat Clearance w eGFR POC Glucometer [id number] 157 Random Glucose Calcium Total Bilirubin AST ALT Alkaline Phosphatase Total Protein Albumin Ur Leukocyte Esterase 2+ H 10/20/17 10/20/17 10/21/17 17:52 21:16 06:00 WBC RBC Hgb Hct MCV MCH MCHC RDW Plt Count MPV Neutrophils % Lymphocytes % Monocytes % Eosinophils % Basophils % Sodium Potassium Chloride Carbon Dioxide Anion Gap BUN Creatinine Creat Clearance w eGFR POC Glucometer 193 177 153 Random Glucose Calcium Total Bilirubin AST ALT Alkaline Phosphatase Total Protein Albumin Ur Leukocyte Esterase 10/21/17 10/21/17 06:40 06:40 WBC 12.0 H RBC 3.42 L Hgb 8.7 L Hct 27.5 L MCV 80.4 MCH 25.4 L MCHC 31.7 L RDW 15.3 Plt Count 329 MPV 8.1 Neutrophils % 82.0 Lymphocytes % 10.3 D Monocytes % 7.2 Eosinophils % 0.2 D Basophils % 0.3 Sodium 138 Potassium 4.3 Chloride 106 Carbon Dioxide 23 Anion Gap 9 BUN 15 Creatinine 0.9 D Creat Clearance w eGFR > 60 POC Glucometer Random Glucose 137 H Calcium 8.5 Total Bilirubin 0.4 AST 54 H D ALT 56 D Alkaline Phosphatase 189 H D Total Protein 6.8 Albumin 2.4 L Ur Leukocyte Esterase Current Medications Generic Name Dose Route Start Last Admin Trade Name Freq PRN Reason Stop Dose Admin Fentanyl 50 mcg 10/20/17 12:09 Sublimaze Injection - IVPUSH [id number] PRN PAIN Heparin Sodium (Porcine) 5,000 unit 10/20/17 14:00 10/21/17 05:55 Heparin - SQ 5,000 unit TID [facility] Administration CEFTRIAXONE 1 G/50 ML PREMIX 50 mls @ 100 mls/hr 10/21/17 06:00 10/21/17 05: 25 Ceftriaxone 1 Gm-D5w Bag IVPB 100 mls/hr DAILY@0600 [facility] Administration Sodium Chloride 1,000 mls @ 125 mls/hr 10/20/17 11:03 10/20/17 11:53 Normal Saline - IV Not Given ASDIR [facility] Insulin Aspart 1 vial 10/20/17 16:30 10/21/17 06:02 Novolog Vial Sliding Scale - SQ Not Given ACHS [facility] Protocol Morphine Sulfate 4 mg 10/20/17 11:03 Morphine Sulfate IVPUSH Q6H PRN PAIN Ondansetron HCl 4 mg 10/20/17 11:03 Zofran Injection IVPUSH Q6H PRN NAUSEA Oxybutynin Chloride 5 mg 10/20/17 22:00 10/20/17 21:13 Ditropan - PO 5 mg BID [facility] Administration Polyethylene Glycol 17 gm 10/20/17 11:45 10/20/17 12:58 Miralax (For Daily Use) - PO 17 gm DAILY [facility] Administration Tamsulosin HCl 0.4 mg 10/21/17 08:30 Flomax - PO DAILY@0830 [facility] Home Medications Medication Instructions Recorded Epinephrine (Epi-Pen 0.3MG) 0.3 mg IM ASDIR PRN 10/19/17 [Epipen 0.3MG -] Metformin HCl 500 mg PO BID 10/19/17 Montelukast Na [Singulair -] 10 mg PO DAILY 10/19/17 Nitrofurantoin Monohyd/M-Cryst 100 mg PO BID 10/19/17 [Macrobid -] Ondansetron HCl [Zofran] 4 mg PO Q8H 10/19/17 Simvastatin 80 mg PO HS 10/19/17 Tamsulosin HCl [Flomax] 0.4 mg PO DAILY 10/19/17 Bisoprolol Fumarate/Hctz 5 - 6.25 mg PO DAILY 10/20/17 [Bisoprolol-Hctz 5-6.25 mg Tab] Lisinopril [Zestril] 2.5 mg PO DAILY 10/20/17 A/P: William Dotson is a 47 yo F with PMHx of DM, HTN, HLD, recurrent renal colic who presented to the ED with fever and left flank pain. She was admitted for sepsis secondary to possible pyelonephritis with obstructing nephrolithiasis. 1. Sepsis secondary to possible pyelonephritis with obstructive nephrolithiasis - CT scan showed 3mm stone in distal left ureter near UVJ, 8mm stone in left lower pole, 7mm focus of left perihilar fat vs. incidental angiomyolipoma in mid left kidney - Currently afebrile - WBC count trending down, initially 17, now 12 - Ceftriaxone 1gm IVPB with D5W @100 mls/hr daily- day 2 - Zofran 4mg Q6H PRN for nausea - Flomax 0.4 mg PO daily - Oxybutinin 5mg PO BID - Discontinue Morphine, will control pain with Tylenol PRN - Diabetic diet - Discontinue fluids - Patient had a stent placed in left ureter by Dr. Fox, she is s/p surgery day 2 - Urology on board- Dr. Yang - ID on board- Dr. Trujillo 2. Hyponatremia - Likely secondary to poor oral intake - Initially sodium was 129, now 138 - Now resolved 3. Constipation s/p stent removal - Patient did not have a bowel movement for 5 days after the left ureter stent was removed - Miralax was started - Currently having normal bowel movements 4. Anemia - Hb trending down, initially 10.1, hematocrit initially 31; today H&H 8.7 and 27.5 - Anemia likely combination of dilutional anemia and patient is s/p surgery - Will continue to monitor H&H 5. DM - Hold metformin - BGM - ISS on board- Novolog 6. HTN - Hold HTN meds because of hypotension - Monitor BP 7. HLD - Simvastatin 80 mg PO HS 8. DVT Proph - Heparin 5000U SQ TID Dispo: Will continue to monitor patient until tomorrow. Will discharge patient tomorrow with PO Ceftin.
[2017-10-21] MEDS: OXYBUTYNIN CHLORIDE 5 MG TABLET PO SCH ×2 (10:32→21:43)
[2017-10-21] MEDS: TAMSULOSIN HCL 0.4 MG CAP.ER.24H (FP) PO SCH (10:32)
[2017-10-21] MEDS: POLYETHYLENE GLYCOL 3350 119 GM BTL PO SCH (10:56)
[2017-10-21] MEDS: SODIUM CHLORIDE 1,000 ML IV SCH (11:19)
--- NOTE | 2017-10-21 12:25 | PN ---
Progress Note (short form) - Note Progress Note: doing well post stent placement no fevers no flank pain urinary frequency noted, no hematuria Vital Signs Period Temp Pulse Resp BP Sys/Hayes Pulse Ox Last 24 Hr 97.7 F-98.4 F 84-96 16-20 104-130/64-80 cor-rrr lungs clear abd soft,nt ext no edema CBC, BMP 10/21/17 06:40 10/21/17 06:40 Microbiology 10/19/17 22:05 Urine - Urine Clean Catch Urine Culture - Final Contaminated: Please Repeat 10/19/17 22:13 Blood - Peripheral Venous Blood Culture - Preliminary NO GROWTH OBTAINED AFTER 24 HOURS, INCUBATION TO CONTINUE FOR 4 DAYS. 10/19/17 22:13 Blood - Peripheral Venous Blood Culture - Preliminary NO GROWTH OBTAINED AFTER 24 HOURS, INCUBATION TO CONTINUE FOR 4 DAYS. a/p s/p stent placement yesterday wbc trending down on ceftriaxone could change to po ceftin 500 bid and treat two weeks when ready for discharge please call back if needed
--- NOTE | 2017-10-21 13:38 | PN ---
Progress Note (short form) - Note Progress Note: Afebrile today. Patient states that she is feeling better compared to admission No CVAT tolerating diet A/P- UTI, ureteral stone, hydronephrosis feeling better if she remains afebrile can be switched to po Ceftin and plan for discharge Problem List - Problems (1) Calculus of ureter Code(s): N20.1 - CALCULUS OF URETER (2) Hydronephrosis Code(s): N13.30 - UNSPECIFIED HYDRONEPHROSIS
[2017-10-21 15:48] LABS: MCH 26.1 pg (25.7-33.7); MCHC 32.6 g/dl (32.0-36.0); MEAN CELL VOLUME 80.2 fl (80-96); MEAN PLT VOLUME 8.2 fl (7.5-11.1); PLATELET COUNT 356 K/MM3 (134-434); RDW 15.2 % (11.6-15.6); WHITE BLOOD COUNT 10.4 K/mm3 (4.0-10.0)
--- NOTE | 2017-10-21 16:51 | PN ---
Teaching Attending Note Name of Resident: Charlie Garay ATTENDING PHYSICIAN STATEMENT Time of evaluation: 10:15 AM I saw and evaluated the patient. I reviewed the resident's note and discussed the case with the resident. I agree with the resident's findings and plan as documented. SUBJECTIVE: patient seen and examined, some suprapubic discomfort and left flank discomfort , but overall much improved, reports noticing stone fragments in the urine. No fevers, chills, nausea or vomiting, tolerating diet well. OBJECTIVE: Vital Signs Period Temp Pulse Resp BP Sys/Hayes Pulse Ox Last 24 Hr 97.7 F-98.4 F 84-104 16-20 104-130/64-80 Intake & Output 10/18/17 10/19/17 10/20/17 10/21/17 23:59 23:59 23:59 23:59 Intake Total 1950 1900 Output Total 820 250 Balance 1130 1650 Weight 204 lb 204 lb General: sitting in bed in no acute distress CVS:S1S2 regular Abdomen: mild LEft CVA tenderness, suprapubic discomfort but no tenderness on exam, Extremities: no edema Home Medication List Medication Instructions Recorded Confirmed Type Epinephrine (Epi-Pen 0.3MG) 0.3 mg IM ASDIR PRN 10/19/17 10/19/17 History [Epipen 0.3MG -] Metformin HCl 500 mg PO BID 10/19/17 10/19/17 History Montelukast Na [Singulair -] 10 mg PO DAILY 10/19/17 10/19/17 History Nitrofurantoin Monohyd/M-Cryst 100 mg PO BID 10/19/17 10/19/17 History [Macrobid -] Ondansetron HCl [Zofran] 4 mg PO Q8H 10/19/17 10/19/17 History Simvastatin 80 mg PO HS 10/19/17 10/19/17 History Tamsulosin HCl [Flomax] 0.4 mg PO DAILY 10/19/17 10/19/17 History Bisoprolol/Hydrochlorothiazide 5 - 6.25 mg PO DAILY 10/20/17 10/20/17 History [Bisoprolol-Hctz 5-6.25 mg Tab] Lisinopril [Zestril] 2.5 mg PO DAILY 10/20/17 10/20/17 History Active Medications Generic Name Dose Route Start Last Admin Trade Name Freq PRN Reason Stop Dose Admin Fentanyl 50 mcg 10/20/17 12:09 Sublimaze Injection - IVPUSH [id number] PRN PAIN Heparin Sodium (Porcine) 5,000 unit 10/20/17 14:00 10/21/17 15:56 Heparin - SQ 5,000 unit TID [facility] Administration CEFTRIAXONE 1 G/50 ML PREMIX 50 mls @ 100 mls/hr 10/21/17 06:00 10/21/17 05: 25 Ceftriaxone 1 Gm-D5w Bag IVPB 100 mls/hr DAILY@0600 [facility] Administration Insulin Aspart 1 vial 10/20/17 16:30 10/21/17 11:18 Novolog Vial Sliding Scale - SQ 2 units ACHS [facility] Administration Protocol Ondansetron HCl 4 mg 10/20/17 11:03 Zofran Injection IVPUSH Q6H PRN NAUSEA Oxybutynin Chloride 5 mg 10/20/17 22:00 10/21/17 10:32 Ditropan - PO 5 mg BID [facility] Administration Polyethylene Glycol 17 gm 10/20/17 11:45 10/21/17 10:56 Miralax (For Daily Use) - PO 17 gm DAILY [facility] Administration Tamsulosin HCl 0.4 mg 10/21/17 08:30 10/21/17 10:32 Flomax - PO 0.4 mg DAILY@0830 [facility] Administration Laboratory Results - last 24 hr 10/19/17 10/20/17 10/20/17 22:05 17:52 21:16 WBC RBC Hgb Hct MCV MCH MCHC RDW Plt Count MPV Neutrophils % Lymphocytes % Monocytes % Eosinophils % Basophils % Sodium Potassium Chloride Carbon Dioxide Anion Gap BUN Creatinine Creat Clearance w eGFR POC Glucometer 193 177 Random Glucose Calcium Total Bilirubin AST ALT Alkaline Phosphatase Total Protein Albumin Ur Leukocyte Esterase 2+ H 10/21/17 10/21/17 10/21/17 06:00 06:40 06:40 WBC 12.0 H RBC 3.42 L Hgb 8.7 L Hct 27.5 L MCV 80.4 MCH 25.4 L MCHC 31.7 L RDW 15.3 Plt Count 329 MPV 8.1 Neutrophils % 82.0 Lymphocytes % 10.3 D Monocytes % 7.2 Eosinophils % 0.2 D Basophils % 0.3 Sodium 138 Potassium 4.3 Chloride 106 Carbon Dioxide 23 Anion Gap 9 BUN 15 Creatinine 0.9 D Creat Clearance w eGFR > 60 POC Glucometer 153 Random Glucose 137 H Calcium 8.5 Total Bilirubin 0.4 AST 54 H D ALT 56 D Alkaline Phosphatase 189 H D Total Protein 6.8 Albumin 2.4 L Ur Leukocyte Esterase 10/21/17 10/21/17 11:17 15:00 WBC 10.4 H RBC 3.73 Hgb 9.7 L D Hct 29.9 L MCV 80.2 MCH 26.1 MCHC 32.6 RDW 15.2 Plt Count 356 MPV 8.2 Neutrophils % Lymphocytes % Monocytes % Eosinophils % Basophils % Sodium Potassium Chloride Carbon Dioxide Anion Gap BUN Creatinine Creat Clearance w eGFR POC Glucometer 197 Random Glucose Calcium Total Bilirubin AST ALT Alkaline Phosphatase Total Protein Albumin Ur Leukocyte Esterase Urine cultures: contaminated ASSESSMENT AND PLAN: 47yo F with PMH HTN, DM, dyslipidemia and recurrent stones wiht recent stent removal on 10/17 and completion of keflex presented tot he ER with L flank pain and fever and found to have pyelonephritis with multiple stones -Sepsis due to acute pyelonephritis with obstructive uropathy -KEVIN, due to obstructive uropathy with hypovolumia, resolved now -Acute anemia, suspect from blood loss from hematuria, compounded by hemodilution -Hyponatremia -NIDDM -HTN Plan: ceftriaxone day 3, urine cultures noted, repeat sent, unlikely to yield organism now. ID input appreciated, plan to transition to ceftin. Urology input noted. Resume anti-hypertensives in 24 hours if BP stable and no new events. D/c IVF. ISS, diabetic diet, resume metformin on dc if no concerns. DVTPPX with heparin dispo anticipate d/c in 24 hours on oral antibiotics if continues to improve. Plan discussed with patient in detail, all questions answered.
[2017-10-21] MEDS ORDERED: KETOROLAC TROMETHAMINE 10 MG TABLET PO PRN (17:28)
[2017-10-21] MEDS ORDERED: PT OWN MED DRAWER 7, Y5N ONE (21:37)
[2017-10-22] MEDS: HEPARIN NA (PORCINE) 5,000 UNITS/ML 1ML VIAL SQ SCH ×2 (06:16→13:01)
[2017-10-22] MEDS: CEFTRIAXONE 1 G/50 ML PREMIX 50 ML IVPB SCH (06:21)
[2017-10-22] MEDS: INSULIN SLIDING SCALE (NOVOLOG) 1 VIAL SQ SCH ×2 (06:22→12:11)
[2017-10-22 06:38] VITALS: PULSE 78
[2017-10-22 08:15] LABS: BASO % 1.2 % (0-2.0); EOS % 2.2 % (0-4.5); MCH 25.7 pg (25.7-33.7); MCHC 31.9 g/dl (32.0-36.0); MEAN CELL VOLUME 80.7 fl (80-96); MEAN PLT VOLUME 8.3 fl (7.5-11.1); NEUT % 63.1 % (42.8-82.8); PLATELET COUNT 412 K/MM3 (134-434); RDW 15.1 % (11.6-15.6); WHITE BLOOD COUNT 10.5 K/mm3 (4.0-10.0)
[2017-10-22] MEDS: TAMSULOSIN HCL 0.4 MG CAP.ER.24H (FP) PO SCH (08:41)
[2017-10-22] MEDS: POLYETHYLENE GLYCOL 3350 119 GM BTL PO SCH (09:13)
[2017-10-22] MEDS: OXYBUTYNIN CHLORIDE 5 MG TABLET PO SCH (09:13)
[2017-10-22 10:00] LABS: ANION GAP 13 (8-16); CO2 23 mmol/L (21-32); CREATININE 0.8 mg/dL (0.55-1.02); GLUCOSE,RANDOM 107 mg/dL (74-106)
[2017-10-22 11:29] VITALS: BP 128/78; TEMP 98.5
--- NOTE | 2017-10-22 14:07 | DS ---
Physical Exam: SUBJECTIVE: No acute events overnight. Pt reports no difficulties with urination and complete resolution of darkened colour urine. Pt eager to go home. OBJECTIVE: Vital Signs Period Temp Pulse Resp BP Sys/Hayes Pulse Ox Last 24 Hr 97.9 F-98.5 F 78-104 16-20 104-134/65-78 PHYSICAL EXAM GENERAL: NAD, awake, alert, and fully oriented HEENT: NC/AT, No JVD, normal structures of mouth with moist mucosa LUNGS: CTA bilaterally, no wheezes, rhonchi, rales. no accessory muscle use. HEART: RRR, S1, S2 without murmur ABDOMEN: Soft, mild suprapubic tenderness, nondistended, normoactive bowel sounds, no guarding, no rebound, no hepatosplenomegaly MSK: No CVA tenderness on exam (resolved since prior exam) EXTREMITIES: 2+ DP pulses, warm, well-perfused, no edema. NEUROLOGICAL: Nonfocal exam. Normal speech, gait not observed. PSYCH: Normal mood, normal affect. SKIN: Warm, dry, no rashes or lesions noted LABS Laboratory Results - last 24 hr 10/21/17 10/21/17 10/21/17 15:00 16:52 21:45 WBC 10.4 H RBC 3.73 Hgb 9.7 L D Hct 29.9 L MCV 80.2 MCH 26.1 MCHC 32.6 RDW 15.2 Plt Count 356 MPV 8.2 Neutrophils % Lymphocytes % Monocytes % Eosinophils % Basophils % Sodium Potassium Chloride Carbon Dioxide Anion Gap BUN Creatinine POC Glucometer 143 173 Random Glucose Calcium 10/22/17 10/22/17 10/22/17 05:37 06:30 06:30 WBC 10.5 H RBC 3.92 Hgb 10.1 L Hct 31.6 L MCV 80.7 MCH 25.7 MCHC 31.9 L RDW 15.1 Plt Count 412 MPV 8.3 Neutrophils % 63.1 D Lymphocytes % 26.3 D Monocytes % 7.2 Eosinophils % 2.2 D Basophils % 1.2 D Sodium 139 Potassium 4.5 Chloride 103 Carbon Dioxide 23 Anion Gap 13 BUN 15 Creatinine 0.8 POC Glucometer 102 Random Glucose 107 H D Calcium 9.0 10/22/17 12:10 WBC RBC Hgb Hct MCV MCH MCHC RDW Plt Count MPV Neutrophils % Lymphocytes % Monocytes % Eosinophils % Basophils % Sodium Potassium Chloride Carbon Dioxide Anion Gap BUN Creatinine POC Glucometer 173 Random Glucose Calcium Microbiology 10/19/17 22:05 Urine - Urine Clean Catch Urine Culture - Final Contaminated: Please Repeat 10/19/17 22:13 Blood - Peripheral Venous Blood Culture - Preliminary NO GROWTH OBTAINED AFTER 72 HOURS, INCUBATION TO CONTINUE FOR 2 DAYS. 10/19/17 22:13 Blood - Peripheral Venous Blood Culture - Preliminary NO GROWTH OBTAINED AFTER 72 HOURS, INCUBATION TO CONTINUE FOR 2 DAYS. HOSPITAL COURSE: Date of Admission:10/20/17 Date of Discharge: 10/22/17 47 yo F with history of DM, HTN, HLD, and recurrent nephrolithiasis who presented to the ED with left flank pain and fever found to have sepsis 2/2 pyelonephritis with obstructing nephrolithiasis. Nephrolithiasis was confirmed with CT noncontrast which revealed a 2-3mm L UVJ kidney stone and an 8mm L south kidney pole stone. During her hospital stay pt was maintained on morphine for pain control, Flomax, oxybutinin, and started on Rocephin 1gm for 2 days Pt had urine cultures collected as above. Urology was consulted and a left ureteral stent was placed with residual hematuria that resolved. Pt will be discharged in stable condition with resolution of symptoms and was given Ceftin 500mg PO BID for the next 12 days based on the recommendations of infectious disease. In addition to the above, pt was found to be mildly hyponatremic on admission, however this was completely resolved with fluid administration. Minutes to complete discharge: 37 Discharge Summary Reason For Visit: HYPONATREMIA RENAL COLIC HYDRONEPHROSIS Current Active Problems Calculus of ureter (Acute) Hydronephrosis (Acute) UTI (urinary tract infection) (Acute) Condition: Good - Instructions Diet, Activity, Other Instructions: You were hospitalized for a blockage in your ureter due to multiple kidney stones Please follow-up with your general medical doctor --If you do not have one, feel free to call [phone] and schedule and appointment with Dr. Schneider and Dr. Garay It is important to follow-up with Dr. Machado's office at due to your recent stent placement within 1-2 weeks. If your symptoms return or worsen including, but not limited to fevers, chills, worsening flank pain, and inability to urinate please call your doctor or go to the nearest emergency room for further evaluation Medications: Please continue your home medications like you have been prior to your hospital stay You will be given the antibiotic Ceftin 500mg to take TWICE per day for the next 12 days --It is very important to finish your complete schedule of antibiotics to prevent infections from returning Encourage fluid intake, May take shower Referrals: Will Machado MD [Staff Physician] - Disposition: HOME - Home Medications Comprehensive Discharge Medication List: Ambulatory Orders Epinephrine (Epi-Pen 0.3MG) [Epipen 0.3MG -] 0.3 mg IM ASDIR PRN 10/19/17 Metformin HCl 500 mg PO BID 10/19/17 Montelukast Na [Singulair -] 10 mg PO DAILY 10/19/17 Ondansetron HCl [Zofran] 4 mg PO Q8H 10/19/17 Simvastatin 80 mg PO HS 10/19/17 Tamsulosin HCl [Flomax] 0.4 mg PO DAILY 10/19/17 Bisoprolol/Hydrochlorothiazide [Bisoprolol-Hctz 5-6.25 mg Tab] 5 - 6.25 mg PO DAILY 10/20/17 Lisinopril [Zestril] 2.5 mg PO DAILY 10/20/17 Cefuroxime Axetil [Ceftin -] 500 mg PO BID #24 tablet 10/22/17 This patient is new to me today: No Emergency Visit: No Critical Care patient: No - Discharge Referral Referred to [facility] Med [facility].C.: No
--- NOTE | 2017-10-22 19:37 | PN ---
Teaching Attending Note Name of Resident: Charlie Garay ATTENDING PHYSICIAN STATEMENT time of evaluation: 10:15 AM I saw and evaluated the patient. I reviewed the resident's note and discussed the case with the resident. I agree with the resident's findings and plan as documented. SUBJECTIVE: patient seen and examined, improved, no complaints. OBJECTIVE: Vital Signs Period Temp Pulse Resp BP Sys/Hayes Pulse Ox Last 24 Hr 98 F-98.5 F 78-86 16-20 112-134/71-78 Intake & Output 10/19/17 10/20/17 10/21/17 10/22/17 23:59 23:59 23:59 23:59 Intake Total 1950 2600 950 Output Total 820 250 420 Balance 1130 2350 530 Weight 204 lb 204 lb general; sitting in bed in no acute distress Abdomen: soft, no CVA or suprapubic tenderness Laboratory Results - last 24 hr 10/21/17 10/22/17 10/22/17 21:45 05:37 06:30 WBC 10.5 H RBC 3.92 Hgb 10.1 L Hct 31.6 L MCV 80.7 MCH 25.7 MCHC 31.9 L RDW 15.1 Plt Count 412 MPV 8.3 Neutrophils % 63.1 D Lymphocytes % 26.3 D Monocytes % 7.2 Eosinophils % 2.2 D Basophils % 1.2 D Sodium Potassium Chloride Carbon Dioxide Anion Gap BUN Creatinine POC Glucometer 173 102 Random Glucose Calcium 10/22/17 10/22/17 06:30 12:10 WBC RBC Hgb Hct MCV MCH MCHC RDW Plt Count MPV Neutrophils % Lymphocytes % Monocytes % Eosinophils % Basophils % Sodium 139 Potassium 4.5 Chloride 103 Carbon Dioxide 23 Anion Gap 13 BUN 15 Creatinine 0.8 POC Glucometer 173 Random Glucose 107 H D Calcium 9.0 Microbiology 10/19/17 22:13 Blood - Peripheral Venous Blood Culture - Preliminary NO GROWTH OBTAINED AFTER 48 HOURS, INCUBATION TO CONTINUE FOR 3 DAYS. 10/19/17 22:13 Blood - Peripheral Venous Blood Culture - Preliminary NO GROWTH OBTAINED AFTER 48 HOURS, INCUBATION TO CONTINUE FOR 3 DAYS. 10/19/17 22:05 Urine - Urine Clean Catch Urine Culture - Final Contaminated: Please Repeat ASSESSMENT AND PLAN: 47yo F with PMH HTN, DM, dyslipidemia and recurrent stones wiht recent stent removal on 10/17 and completion of keflex presented tot he ER with L flank pain and fever and found to have pyelonephritis with multiple stones -Sepsis due to acute pyelonephritis with obstructive uropathy -KEVIN, due to obstructive uropathy with hypovolumia, resolved now -Acute anemia, suspect from blood loss from hematuria, compounded by hemodilution -Hyponatremia -NIDDM -HTN Plan: ceftriaxone day 4, urine cultures noted, repeat sent, unlikely to yield organism now. ID input appreciated, plan to transition to ceftin. Urology input noted. ISS, diabetic diet, resume metformin on dc if no concerns. DVTPPX with heparin d/c home today with outpatient urology follow up. Plan discussed with patient in detail, all questions answered.
== END 2017-10-22 15:02 | disposition home or self-care (01) | DRG 720 ==
LOC: JER 21:05 → JERBED 10-20 02:55 → UNDOADMIN 10-20 03:10 → JERBED 10-20 03:10 → J8W 10-20 09:21
PROVIDERS: ADMIT Internal Medicine; ATTEND Hospitalist
PROC: 0T778DZ Dilation of Left Ureter with Intraluminal Device, Via Natural or Artificial Opening Endoscopic (ICD-10-PCS; principal; 2017-10-20 14:30)
PROC: BT1FYZZ Fluoroscopy of Left Kidney, Ureter and Bladder using Other Contrast (ICD-10-PCS; 2017-10-20 14:30)
DX: A41.9 Sepsis, unspecified organism (principal); N17.9 Acute kidney failure, unspecified; E87.1 Hypo-osmolality and hyponatremia; N13.2 Hydronephrosis with renal and ureteral calculous obstruction; N13.8 Other obstructive and reflux uropathy; N10 Acute pyelonephritis; E11.9 Type 2 diabetes mellitus without complications; E78.5 Hyperlipidemia, unspecified; I10 Essential (primary) hypertension; Z79.84 Long term (current) use of oral hypoglycemic drugs; Z87.891 Personal history of nicotine dependence; N39.0 Urinary tract infection, site not specified; K59.00 Constipation, unspecified; D64.9 Anemia, unspecified; R31.9 Hematuria, unspecified
CPT/HCPCS: 36415; 74176-TC; 76000-TC; 80048; 80053; 81003; 81015; 83605; 83735; 84100; 85025; 85027; 87040; 87086; 93005; 93010; 94760; 99284-25; J1644